=== PATIENT | male | born 1995 ===

== ENCOUNTER 2018-11-06 16:59 | Emergency (ER) | payer OTHER ==
--- NOTE | 2018-11-06 17:08 | UC ---
Throat Pain/Nasal Amarjit HPI - HPI Summary HPI Summary: 23 y/o male presents to the urgent c/o sore throat, fever, nasal congestion w. yellowish nasal discharge, productive cough w/ yellowish phlegm for the past months. Pt states symptoms have worsen for the past week w/ low grade fever, chills, body aches PEDERSEN, and decrease appetite. Pt saw his PCP on 10/26/2018 and strep was negative, mononucleosis negative, and Rx Cefuroxime for a bacterial infection, unsure of Dx. He took half of the antibiotics since it was not improving. He has not taking anything for fever. Pt denies SOB, wheezing, chest pain, abdominal pain, N/V/D, rash, neck pain, or Hx of Tick bites. - History of Current Complaint Stated Complaint: SORE THROAT,FATIGUE Time Seen by Provider: 11/06/18 17:06 Hx Obtained From: Patient Onset/Duration: Gradual Onset, Lasting Weeks - 4 weeks, Still Present, Worse Since - last week Severity: Moderate Pain Intensity: 5 Pain Scale Used: 0-10 Numeric Cough: Productive - yellowish phlegm Associated Signs & Symptoms: Positive: Dysphagia, Sinus Discomfort, Nasal Discharge, Fever. Negative: Wheezing, Hoarseness, Vomiting, Rash - Epiglottits Risk Factors Epiglottis Risk Factors: Negative - Allergies/Home Medications Allergies/Adverse Reactions: Allergies Allergy/AdvReac Type Severity Reaction Status Date / Time No Known Allergies Allergy Verified 11/06/18 17:12 PMH/Surg Hx/FS Hx/Imm Hx Previously Healthy: Yes - Pt denies PMHX - Family History Known Family History: Positive: Diabetes - Social History Occupation: Student Lives: Dormitory/Roommates - Immunization History Vaccination Up to Date: Yes Review of Systems All Other Systems Reviewed And Are Negative: Yes Constitutional: Positive: Fever, Chills, Fatigue, Other - body aches Skin: Positive: Negative Eyes: Positive: Negative ENT: Positive: Sore Throat, Nasal Discharge - yellowish, Sinus Congestion, Sinus Pain/Tenderness Respiratory: Positive: Cough - productive w/ yellowish phlegm Cardiovascular: Positive: Negative Gastrointestinal: Positive: Negative Genitourinary: Positive: Negative Motor: Positive: Negative Neurovascular: Positive: Negative Musculoskeletal: Positive: Negative Neurological: Positive: Headache Psychological: Positive: Negative Is Patient Immunocompromised?: No Physical Exam - Summary Physical Exam Summary: Vital Signs Reviewed: Yes General: well developed, well nourished male sitting in the examining table w/o any apparent distress Eyes: Positive: Conjunctiva Clear - PERRLA, EOMI, fundi grossly normal ENT: Positive: Normal ENT inspection, Hearing grossly normal, Pharynx normal, Nasal congestion - edematous and erythematous nasal mucosa, Nasal drainage - yellowish drainage, TMs normal. Negative: Tonsillar swelling, Tonsillar exudate Neck: Positive: Supple, Nontender, No Lymphadenopathy Respiratory: no orthopnea or dyspnea. Able to speak in full sentences, no retractions or accessory muscle use, no tripod position, stridor, or head bobbing. Positive breath sounds bilaterally. diffuse scattered rhonchi on b/L lungs, RT lowe lung w/ mild crackles, no wheezing, no rales. Cardiovascular: Positive: RRR, No Murmur, Pulses Normal, Brisk Capillary Refill Abdomen Description: Positive: Nontender, No Organomegaly, Soft. Negative: CVA Tenderness (R), CVA Tenderness (L) Bowel Sounds: Positive: Present Musculoskeletal Exam: Normal Musculoskeletal: Positive: Strength Intact, ROM Intact, No Edema Neurological Exam: Normal Psychological Exam: Normal Skin Exam: Normal Triage Information Reviewed: Yes Throat Pain/Nasal Course/Dx - Course Course Of Treatment: 23 y/o male presents to the urgent c/o sore throat, fever, nasal congestion w. yellowish nasal discharge, productive cough w/ yellowish phlegm for the past months. Pt states symptoms have worsen for the past week w/ low grade fever, chills, body aches PEDERSEN, and decrease appetite. Pt saw his PCP on 10/26/2018 and strep was negative, mononucleosis negative, and Rx Cefuroxime for a bacterial infection, unsure of Dx. He took half of the antibiotics since it was not improving. He has not taking anything for fever. Pt denies SOB, wheezing, chest pain, abdominal pain, N/V/D, rash, neck pain, or Hx of Tick bites. Hx obtained. Pt with B/L lungs w/ scattered Rhonchi, RT lower lungs w/ mild crackles on examination. Pt is [id number], O2Sat: 99%, Pt give Ibuprofen PO for fever by the nurse. Rapid strep=negative, Influenza A&B= negative. Chest X-ray ordered to r/o pneumonia. Impression: RT lower lobe pneumonia. final report still pending. I discussed all the findings and test results with the patient. Pt given ibuprofen for fever and First dose of Doxycycline at the clinic. Rx Doxycycline PO, Albuterol inhaler and ibuprofen PO. He was strongly advised if worsening symptoms to go immediately to the ER. Also advised to f/u w/ his PCP in 2 days to maek sure her symptoms are improving. D/C instructions explained. Pt understood and agreed w/ plan of care. Pt left the clinic hemodynamically stable, A&OX3 - Differential Dx/Diagnosis Differential Diagnosis/HQI/PQRI: Laryngitis, Mononucleosis, Pharyngitis, Sinusitis, Tonsillitis, URI Provider Diagnosis: Community acquired pneumonia Discharge - Sign-Out/Discharge Documenting (check all that apply): Patient Departure - D/c home All imaging exams completed and their final reports reviewed: No - Discharge Plan Condition: Stable Disposition: HOME Prescriptions: Albuterol HFA INHALER* [Ventolin HFA Inhaler*] 1 - 2 puff INH Q6H PRN #1 mdi PRN Reason: Cough DOXYcycline CAP(*) [DOXYcycline 100MG CAP(*)] 100 mg PO BID #19 cap Ibuprofen TAB* [Motrin TAB* 800 MG] 800 mg PO Q6H PRN #30 tab PRN Reason: Fever Patient Education Materials: Community Acquired Pneumonia (ED) Forms: *School Release Referrals: [facility] [Primary Care Provider] - 2 Days Additional Instructions: 1-Please take full course of antibiotic to avoid resistance. Starting tomorrow night 2-Take Delsym PO and use the albuterol inhaler to alleviate cough. Increase fluid intake, rest and eat well. 3- If symptoms do not improve or worsen or your develop SOB with fever and severe cough please go immediately to the ER further evaluation and treatment. 4-See your PCP in 2-3 days to check your symptoms are improving - Billing Disposition and Condition Condition: STABLE Disposition: Home
[2018-11-06 17:12] VITALS: BP 133/73
[2018-11-06] MEDS ORDERED: Ibuprofen TAB* 400 MG PO ONE (17:20)
[2018-11-06] MEDS ORDERED: DOXYcycline CAP(*) 100 MG PO ONE (18:06)
--- NOTE | 2018-11-07 07:55 | UC ---
- Progress Note Progress Note: Chest x-ray reading by radiology from November 06, 2018 as positive for right sided pneumonia. The provider's interpretation of the chest x-ray from November 06, 2018 is a right-sided pneumonia and the patient was treated for the pneumonia. Therefore there is no discrepancy. Course/Dx - Diagnoses Provider Diagnoses: Community acquired pneumonia Discharge - Sign-Out/Discharge Documenting (check all that apply): Patient Departure All imaging exams completed and their final reports reviewed: Yes - Discharge Plan Condition: Stable Disposition: HOME Prescriptions: Albuterol HFA INHALER* [Ventolin HFA Inhaler*] 1 - 2 puff INH Q6H PRN #1 mdi PRN Reason: Cough DOXYcycline CAP(*) [DOXYcycline 100MG CAP(*)] 100 mg PO BID #19 cap Ibuprofen TAB* [Motrin TAB* 800 MG] 800 mg PO Q6H PRN #30 tab PRN Reason: Fever Patient Education Materials: Community Acquired Pneumonia (ED) Forms: *School Release [facility] - 2 Days Additional Instructions: 1-Please take full course of antibiotic to avoid resistance. Starting tomorrow night 2-Take Delsym PO and use the albuterol inhaler to alleviate cough. Increase fluid intake, rest and eat well. 3- If symptoms do not improve or worsen or your develop SOB with fever and severe cough please go immediately to the ER further evaluation and treatment. 4-See your PCP in 2-3 days to check your symptoms are improving - Billing Disposition and Condition Condition: STABLE Disposition: Home
== END 2018-11-06 18:28 | disposition home or self-care (01) ==
LOC: UCEAST 16:59
DX: J18.9 Pneumonia, unspecified organism (principal)
CPT/HCPCS: 71046; 87651; 99202; A9270-GY; G0463